=== PATIENT | female | born 1965 | race Caucasian/White ===

== ENCOUNTER 2024-07-07 12:24 | Emergency (ER) | payer MEDICARE, OTHER, SELFPAY ==
[2024-07-07] VITALS (12 sets, daily range): BP systolic 156–172; BP diastolic 93–107; PULSE 60–80; RESP 7–26; TEMP 36.6; O2SAT 92–98; BMI 25.0
--- NOTE | 2024-07-07 14:52 | ED.GENADULT ---
HPI - General Adult General Date Seen: 07/07/24 Chief complaint: Chest Pain Stated complaint: High blood pressure, chest pain Time Seen by Provider: 07/07/24 14:52 History of Present Illness HPI narrative: 58 yo F with a past history of concussion and postconcussive syndrome, ongoing problems with her cervical spine in neck, frequent headaches, but no history of hypertension, stroke, or other vascular disease presenting to the ER today with concerns for elevated blood pressure associated with feeling poorly, retaining fluid, headache. She notes that she gets fairly frequent headaches, typically in the back of her head related to her bad neck pain. She has been doing a lot of physical labor at her property for the past couple of days, in particular on Sunday and Sunday when she was removing gil torn. Since then she has noted worsening of symptoms. She just was not feeling well on Sunday with generalized fatigue, headache, and she also felt bloated with fluid. She says she was up about 8 lb compared to her dry weight on Sunday. Overall since then she has been gradually having weight drop and getting back to normal on Sunday and today on Sunday. She still has a fairly persistent headache located at the top of her head and also in the back of her head. Her usual location of headache is in the back so it is unusual have 1 that extends up to the top. She is not having any blurry vision or double vision. No focal numbness or weakness in her face, arms, or legs. Patient notes that she often has some right-sided parasternal chest pain but this week and had some episodes of left-sided parasternal chest pain 2. She says often times that pain is triggered by heavy movements and that often times gets better when she has manipulation by her chiropractor. The pain is sharp and was intermittent. It was not clearly a substernal pressure related to exertion, more of just an ache with movement. No associated abdominal pain. No nausea. Related Data Home Medications ?Medication ?Instructions ?Recorded ?Confirmed multivit,tx w/iron (hematinic) tab 07/07/24 omega-3 fatty acids-fish oil PO 07/07/24 tumeric 07/07/24 Allergies Allergy/AdvReac Type Severity Reaction Status Date / Time avocado Allergy Mild hives Verified 07/07/24 12:58 mustard Allergy Mild coughing Verified 07/07/24 12:58 and swelling in the face [facility] Social History Smoking Status: Never smoker Do you use any of these nicotine containing products: None How often do you have a drink containing alcohol: monthly or less How many standard drinks containing alcohol do you have on a typical day: 1 or 2 AUDIT-C Alcohol total score: 1 Non-prescribed substance use: denies use Exam Narrative: Exam Narrative: Constitutional: Appears well-developed and well-nourished. Alert. Conversant. Non toxic. HENT: Head: Atraumatic. Nose: Nose normal. Mouth/Throat: Oral mucosa is clear and moist. no trismus. Pharynx normal. Tonsils symmetric. No tonsillar enlargement, erythema, or exudate. Eyes: Conjunctivae normal. EOM normal. Pupils equal, round, and reactive to light. No scleral icterus. Neck: Normal range of motion. The or no stiffness or meningismus Neck supple. No tracheal deviation present. No JVD Cardiovascular: Normal rate, regular rhythm. No gallop. No friction rub. No murmur heard. Symmetric radial artery pulses Pulmonary/Chest: Effort normal. No stridor. No respiratory distress. No wheezes. No rales. No rhonchi . No tenderness. Abdominal: Soft. Bowel sounds normal. No distension. No mass. No tenderness. No rebound. No guarding. Musculoskeletal: RUE: Normal range of motion. No tenderness. No deformity LUE: Normal range of motion. No tenderness. No deformity RLE: Normal range of motion. No edema. No tenderness. No deformity LLE: Normal range of motion. No edema. No tenderness. No deformity Neurological: Mental status normal. Attention normal. Alert and oriented x3. GCS 15. Memory normal. Speech fluent. Cognition normal. Cranial Nerves intact II-XII except I did not formally test gag or visual acuity. EOMI. Palate elevates symmetrically and tongue protrudes in the midline. Strength: 5/5 trapezius on the right and left 5/5 deltoid on the right and left 5/5 biceps on the right and left 5/5 triceps on the right and left 5/5 manufacturing leader on the right and left 5/5 thumb opposition on the right and left 5/5 finger abduction on the right and left 5/5 hip flexors (L3) on the right and left 5/5 quadriceps (L4) on the right and left 5/5 tibialis anterior on the right and left 5/5 EHL (L5) on the right and left 5/5 gastrocnemius (S1) on the right and left 5/5 hamstring on the right and left Sensation intact to light touch in both upper extremities (C4-T1) Sensation intact to light touch in Both lower extremities (L4-S1). coordination normal. Gait normal. Skin: Skin is warm and dry. No rash noted. No pallor. Normal capillary refill. Psychiatric: Normal mood. Normal affect. Const: Vital Signs, click to edit/add: Vital Signs - 24 hr 07/07/24 12:49 07/07/24 15:52 07/07/24 16:00 Temperature 97.9 F Pulse Rate 60 Pulse Rate [Pulse Oximeter] 80 Respiratory Rate 16 26 H 12 Blood Pressure Blood Pressure [Ri ght Upper Arm] 172/103 H Pulse Oximetry 97 95 Oxygen Delivery Me thod Room Air 07/07/24 16:01 07/07/24 16:02 07/07/24 16:32 Temperature Pulse Rate 69 68 Pulse Rate [Pulse Oximeter] Respiratory Rate 14 26 H 19 Blood Pressure 156/93 H Blood Pressure [Ri ght Upper Arm] Pulse Oximetry 92 96 Oxygen Delivery Me thod 07/07/24 16:34 Temperature Pulse Rate 72 Pulse Rate [Pulse Oximeter] Respiratory Rate 7 L Blood Pressure 161/98 H Blood Pressure [Ri ght Upper Arm] Pulse Oximetry 97 Oxygen Delivery Me thod Course Course ED Course: Recheck-reports that her headache is ?much improved, almost gone. She is smiling, sitting up, chatting with her daughter. Discussed results of the workup with the patient and her daughter. They are comfortable with plan for outpatient management. Vital Signs Vital signs: Initial Vital Signs Temperature 97.9 F 07/07/24 12:49 Temperature Source Temporal Artery Scan 07/07/24 12:49 Pulse Rate 80 07/07/24 12:49 Respiratory Rate 16 07/07/24 12:49 Blood Pressure 172/103 H 07/07/24 12:49 Blood Pressure Mean 126 H 07/07/24 12:49 Blood Pressure Position Sitting 07/07/24 12:49 Pulse Oximetry 97 07/07/24 12:49 Oxygen Delivery Method Room Air 07/07/24 12:49 Vital Signs Temperature 97.9 F 07/07/24 12:49 Pulse Rate 80 07/07/24 12:49 Respiratory Rate 16 07/07/24 12:49 Blood Pressure 172/103 H 07/07/24 12:49 Pulse Oximetry 97 07/07/24 12:49 Oxygen Delivery Method Room Air 07/07/24 12:49 Temperature 97.9 F 07/07/24 12:49 Pulse Rate 72 07/07/24 16:34 Respiratory Rate 7 L 07/07/24 16:34 Blood Pressure 161/98 H 07/07/24 16:34 Pulse Oximetry 97 07/07/24 16:34 Oxygen Delivery Method Room Air 07/07/24 12:49 Medications Administered Medications: Discontinued Medications Generic Name Dose Route Start Last Admin Trade Name Sherifq PRN Reason Stop Dose Admin Diphenhydramine HCl 12.5 mg 07/07/24 15:19 07/07/24 15:34 Diphenhydramine 50 Mg/Ml Inj IVP 07/07/24 15:20 12.5 mg ONCE ONE Administration Ketorolac Tromethamine 15 mg 07/07/24 15:19 07/07/24 15:34 Ketorolac 15 Mg/Ml Inj IVP 07/07/24 15:20 15 mg ONCE ONE Administration Metoclopramide HCl 10 mg 07/07/24 15:19 07/07/24 15:35 Metoclopramide Hcl 5 Mg/Ml Inj IVP 07/07/24 15:20 10 mg ONCE ONE Administration Medical Decision Making MDM Narrative Medical decision making narrative: This patient presents for evaluation of elevated blood pressure. She does not have a history of hypertension in the past. Wall she has also had symptoms of headache which is worse than her chronic headache that started on Sunday, also intermittent chest pain on Sunday. Also she reports fluid retention and what sounds like edema that happened on Sunday but is actually getting better. Head CT is normal. She is not having any fever, neck stiffness, meningismus to raise concern for meningitis. Headache was not abrupt in onset to suggest subarachnoid hemorrhage. At this point I do not think she needs lumbar puncture or CT angiogram. No focal neurologic deficits to suggest stroke For chest pain, workup is performed. She is not having intermittent chest pains to suggest angina, more of a sharp ache on both the right and left sternal borders. History is not really suggestive for ACS. EKG nonischemic and troponin is negative. With symptoms ongoing now for 2 days, I think a single troponin is sufficient to rule out ACS. BNP level is normal arguing against CHF or other cardiac strain. Urinalysis is negative for proteinuria or infection. Kidney function is normal on lab work. No evidence for any acute renal failure as a consequence of hypertension. The workup here is negative and the patient does not have any clinical, laboratory, ecg or historical signs of end-organ dysfunction. There is no signs of hypertensive emergency or urgency. Supportive outpatient management is therefore indicated with close follow-up of primary care physician. We discussed her high blood pressure. It is still elevated at about 160/98 after headache is improved. We discussed potentially initiating blood pressure medications today. She would prefer to follow up with her PCP and have it rechecked. Encouraged serial blood pressure monitoring at home to aid primary in decision making regarding hypertension. Lab Data Labs: Lab Results 07/07/24 07/07/24 Range/Units 15:45 16:10 WBC 4.49 L (4.50-11.00) K/uL RBC 4.09 (4.00-5.20) m/uL Hgb 12.8 (12.0-16.0) gm/dL Hct 39.2 (33.0-51.0) % MCV 96 (80-100) fL MCH 31 (26-34) pg MCHC 33 (32-36) gm/dL RDW Coeff of Jose F 11.9 (11.5-15.5) % Plt Count 238 (140-440) K/uL Neut % (Auto) 44.5 (42.0-72.0) % Lymph % (Auto) 44.3 H (20-44) % [place]verse % (Auto) 7.6 (0.0-11.0) % Eos % (Auto) 2.7 (0.0-7.0) % Baso % (Auto) 0.9 (0.0-3.0) % Neut # (Auto) 2.00 (1.7-7.0) K/uL Lymph # (Auto) 2.00 (0.90-2.90) K/uL Converse # (Auto) 0.30 (0.00-0.90) K/UL Eos # (Auto) 0.10 (0.00-0.50) K/uL Baso # (Auto) 0.00 (0.00-0.30) K/uL Abs Immat Gran (auto) 0.00 (0.00-0.30) K/uL Imm/Tot Granulo (auto) 0.0 % Sodium 136 (135-149) mmol/L Potassium 3.8 (3.6-5.1) mmol/L Chloride 102 (96-114) mmol/L Carbon Dioxide 25 (20-32) mmol/L Anion Gap 9 (7-15) mEq/L BUN 11 (7-30) mg/dL Creatinine 0.7 (0.5-1.5) mg/dL Estimated Creat Clear 87.29 Estimated GFR 100 ml/min Glucose 81 (60-115) mg/dL Calcium 9.4 (8.4-10.6) mg/dL Troponin I < 0.01 L (0.01-0.04) ng/mL NT-Pro-B Natriuret Pep 82 pg/mL Urine Color Yellow (Yellow) Urine Appearance Clear (Clear) Urine pH 7.0 (5.0-8.5) Ur Specific [place] 1.010 (1.000-1.030) Urine Protein Negative (Negative) Urine Glucose (UA) Negative (Negative) Urine Ketones 2+ A (Negative) Urine Blood Negative (Negative) Urine Nitrite Negative (Negative) Urine Bilirubin Negative (Negative) Urine Urobilinogen 0.2 (0.2-1.0) Ur Leukocyte Esterase Trace A (Negative) Urine RBC 0-2 (0-2) Urine WBC 0-2 (0-5) Ur Squamous Epith Cells None (None-Few) Urine Bacteria None (None) Imaging Data CT scan - head: Attestation: I have reviewed the pertinent imaging results. Radiologist's impression: IMPRESSION: No acute findings. Incidental findings as above. ECG Data Attestation: I personally reviewed and interpreted this ECG as follows: Interpretation: Normal sinus rhythm Rate: 70 IA: 156 QRS axis: Normal axis ST segment/T wave: No pathologic Q-waves. QTc: Prolonged QT. 460 Discharge Plan Discharge Clinical Impression: High blood pressure, Chest pain, Headache Patient Disposition: Home, Self-Care Condition: Stable Instructions: Chest Pain (DC), Acute Headache (DC), Hypertension (ED) Prescriptions: No Action tumeric omega-3 fatty acids-fish oil [Fish Oil Pearls] PO multivit,tx w/iron (hematinic) Tablet Follow Up/Referrals: Provider,Not a Local [Primary Care Provider] - Stand Alone Forms: MyHealth Info Instructions
[2024-07-07] MEDS: KETOROLAC 15 MG/ML inj IVP (15:34)
[2024-07-07] MEDS: diphenhydrAMINE 50 MG/ML inj 12.5 MG IVP (15:34)
[2024-07-07] MEDS: METOCLOPRAMIDE HCL 5 MG/ML INJ 10 MG IVP (15:35)
[2024-07-07 15:53] LABS: Basophils Percent Auto 0.9 % (0.0-3.0); Eosinophils Percent Auto 2.7 % (0.0-7.0); Hematocrit 39.2 % (33.0-51.0); Hemoglobin* 12.8 gm/dL (12.0-16.0); Lymphocytes Percent Auto 44.3 % (20-44); Mean Corpuscular HGB Conc 33 gm/dL (32-36); Mean Corpuscular Hemoglobin 31 pg (26-34); Mean Corpuscular Volume 96 fL (80-100); Monocytes Percent Auto 7.6 % (0.0-11.0); Neutrophils Percent Auto 44.5 % (42.0-72.0); Platelet Count* 238 K/uL (140-440); RDW Coefficient of Variation % 11.9 % (11.5-15.5); Red Blood Count 4.09 m/uL (4.00-5.20); White Blood Count* 4.49 K/uL (4.50-11.00)
[2024-07-07 15:57] LABS: Slide Review Reflex No
[2024-07-07 16:07] LABS: Chloride* 102 mmol/L (96-114); Potassium* 3.8 mmol/L (3.6-5.1); Sodium* 136 mmol/L (135-149)
[2024-07-07 16:10] LABS: Anion Gap 9 mEq/L (7-15); Blood Urea Nitrogen* 11 mg/dL (7-30); Calcium* 9.4 mg/dL (8.4-10.6); Carbon Dioxide* 25 mmol/L (20-32); Creatinine* 0.7 mg/dL (0.5-1.5); Est. Creatinine Clearance* 87.29; Estimated Glomerular Filt Rate 100 ml/min; Glucose* 81 mg/dL (60-115)
[2024-07-07 16:19] LABS: Appearance Urine Clear (Clear); Bilirubin Urine Negative (Negative); Blood Urine Negative (Negative); Color Urine Yellow (Yellow); Glucose Urine Negative (Negative); Ketones Urine 2+ (Negative); Leukocyte Esterase Urine Trace (Negative); Nitrite Urine Negative (Negative); Protein Urine Negative (Negative); Urobilinogen Urine 0.2 (0.2-1.0)
[2024-07-07 16:25] LABS: RBC Urine 0-2 (0-2); WBC Urine 0-2 (0-5)
[2024-07-07 16:29] LABS: NT Pro B Type NatriureticPept* 82 pg/mL; Troponin I* < 0.01 ng/mL (0.01-0.04)
--- OUTSIDE RECORDS SUMMARY | 2024-07-07 16:56 | XMS_ITS | Clinical Summary ---
Author Organization [facility] Address [address] [place] [address] Care Team Providers Care Bean Weigher Name Role Phone Vick Guardado MD Primary Care Provider Allergies Active Allergy Reactions Criticality Noted Date Comments Avocado Rash 04/16/2012 Mustard Edema 04/16/2012 Medications * This document contains information received from the source organization and may not represent a complete record from that organization. DOCOSAHEXANOIC ACID/EPA (FISH OIL ORAL) Take by mouth once daily. Active multivitamin (MVI) tablet Take 1 tablet by mouth once daily. Active ERGOCALCIFEROL, VITAMIN D2, (VITAMIN D ORAL) Take by mouth once daily. Active fexofenadine (MIHAI) 180 mg tablet Take 180 mg by mouth once daily if needed. 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 Occipital neuralgia 04/23/2012 Bicipital tenosynovitis 04/23/2012 Neck pain 04/16/2012 Shoulder pain 04/16/2012 Disturbance of skin sensation 04/16/2012 Myalgia and myositis, unspecified 04/16/2012 Fall 04/16/2012 Encounters Date Type Department Care Team Description 07/07/2024 Nurse Triage [address] [address] Clinic, No Pcp Or High Blood Pressure from Last 3 Months Social History Tobacco Use Types Packs/Day Years Used Date Smoking Tobacco: Never Smokeless Tobacco: Never Alcohol Use Standard Drinks/Week Comments Not Asked 0 (1 standard drink = 0.6 oz pur e alcohol) Comments No Sex and Gender Information Value Date Recorded Sex Assigned at Not on file 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 Gender Identity Not on file Sexual Orientation Not on file Obstetrics History Last Filed Vital Signs Vital Sign Reading Time Taken Comments Blood Pressure 124/80 08/25/2016 10:09 AM CDT Pulse 80 08/25/2016 10:09 AM CDT Temperature 36.5 C (97.7 F) 08/25/2016 10:09 AM CDT Respiratory Rate 18 08/25/2016 10:09 AM CDT Oxygen Saturation 98% 08/25/2016 10:09 AM CDT Inhaled Oxygen Concentration - - Weight 71 kg (156 lb 9.6 oz) 08/25/2016 10:09 AM CDT Height 172.7 cm (5' 8) 08/25/2016 10:09 AM CDT Body Mass Index 23.81 08/25/2016 10:09 AM CDT Plan of Treatment Health Maintenance Due Date Last Done Comments Tdap 10/23/1975 Depression screening for age 12+ 1976 HIV for age 15-65 10/23/1979 Hepatitis C screening for age 18-79 1982 Tetanus booster 1984 Pap test for age 21-65 1985 Colonoscopy through age 75 2009 Lipids for age 45-75 2009 Mammogram for age 45-75 2009 Pneumococcal series for age 50+ (1 of 1 - PCV) 015 Zoster (shingles) series for age 50+ (1 of 2) 10/23/19 15 BMI (ht and wt on same day) for age 18+ 08/25/2017 0 08/25/2016 COVID-19 vaccine series ( season) 4 Influenza for age 50-64 01/06/2024 Medical Devices Implanted Type Area Radiation Control Technician Device Identifier Shelf Expiration Date Model / Serial / Lot [id number] Canclls 15cc Crushed [[id number]] Implanted:Qty: 1 on 09/14/[address] [facility] Spine Musculoskeletal Transplant 12/05/2013 [id number] / [id number] / Plate Ti Recon 12mm 2 Holes Sm Notched Spacing - [id number] Implanted:Qty: 2 on 09/14/[address] [facility] Right: Spine [employer] [id number]# / / Screw Canclls Bone 12mm - [id number] Implanted:Qty: 2 on 09/14/[address] [facility] Right: Spine DepPress Play 409.012# / / Screw Canclls [id number] Full Thread 409.014 - [id number] Implanted:Qty: 2 on 09/14/[address] [facility] Right: Spine Depuy Foodyn 409.014# / / Insurance TrialScope PB ONLY LILLI DILLARD Advance Directives * Full Code (Latest Code Status on File) Date Activated Date Inactivated Comments 09/14/2011 6:11 AM 09/16/2011 11:58 AM Care Teams Bean Weigher Relationship Specialty Start Date End Date Vick Guardado MD PCP - General 04/16/12
--- OUTSIDE RECORDS SUMMARY | 2024-07-07 16:56 | XMS_ITS | Continuity of Care Document ---
Author Organization [facility] Address [address] [place] [address] Phone Care Team Providers Care Banana Ripening Room Supervisor Name Role Phone Unavailable Unavailable Unavailable Allergies, Adverse Reactions, Alerts Substance Reaction Status Criticality No Known allergies Medications Medication Instructions Dosage Effective Dates (start - stop) Status Comments Flexeril 10 mg Tab take 1 tablet (10MG) by oral route every day as needed 10 MG - Active GABAPENTIN (unknown strength) Not Available - Active MULTIVITAMINS (unknown strength) Not Available - Active FISH OIL (unknown strength) Not Available - Active VITAMIN D3 (unknown strength) Not Available - Active PROBIOTIC (unknown strength) Not Available - Active ADVIL (unknown strength) Not Available - Active Procedures Procedure Date Office/Outpatient Visit,Est, Mod 2012 Office/Outpatient Visit,Est, Mod 2012 Office/Outpatient Visit,Est, Mod 2011 Office/Outpatient Visit,Est, Mod 2011 X-Ray Exam Of Neck Spine2-3 Views Postop Followup Visit X-Ray Exam Of Neck Spine2-3 Views Postop Followup Visit X-Ray Exam Of Neck Spine2-3 Views Neck Spine Fusion (Cerv,Below C2) Cervical Spine Disk Surgery/Decompress M Added Spine Disk Surgery/Decompress Insert Spine Fixation, Posterior 2011 Apply/Remove Bone Fixation Device Autograft, Spine Surg, Morselized Allograft, Spine Surg, Morselized Office/Outpatient Visit,Est, Mod 2011 Office/Outpatient Visit,New, Low 2011 X-Ray Exam Of Neck Spine, 4+ Views Advance Directives Directive Yes / No Effective Date File Name No Information Encounters Encounter Description Practice Location Reason(s) For Visit Diagnoses Date Provider Providers Copied on Encounter [facility], [address], [place], [address], [place] tel:[phone] [facility] No Information 3 No Information Office/Outpa tient Visit,Est, Mod [facility], [address], [place], [address], [place] tel:[phone] [employer] No Information [address] [facility], [address] [place] [address] [address], [place], [place], [id number], [place]. tel:[phone] Referring Provider: Vijay Bradshaw [facility] [address] [place], [address]. tel:[phone] Office/Outpa tient Visit,Est, Mod [facility], [address], [place], [address], [place] tel:[phone] [employer] No Information 3 Mehbod Amir. [facility], [address] [place] [address] [address], [place], [place], [id number], [place]. tel:[phone] Referring Provider: Vijay Bradshaw [facility] [address] [place], [address]. tel:[phone] Office/Outpa tient Visit,Est, Mod [facility], [address], [place], [address], [place] tel:[phone] [employer] No Information 2 Mehbod Amir. [facility], [address] [place] [address] [address], [place], [id number], [place]. tel:[phone] Referring Provider: Vijay Bradshaw, [facility] [address] [place], [address]. tel:[phone] Office/Outpa tient Visit,Est, Mod [facility], [address], [place], [address], [place] tel:[phone] [employer] No Information Mar- 2-201 2 Mehbod Amir. [facility], [address], [place], [place], [id number], [place]. tel:[phone] Referring Provider: Vijay Bradshaw, [facility] [address] [place], [place], [facility]. tel:[phone] [facility], [address], [place], [address], [place] tel:[phone] [email or web address] [place] No Information 2-201 2 Mehbod Amir. [facility], [address], [place], [place], [address], [place]. tel:[phone] [facility], [address], [place], [address], [place] tel:[phone] [email or web address] [place] No Information Nov-3 0-201 2 Mehbod Amir. [facility], [address], [place], [place], [id number], [place]. tel:[phone] [facility], [address], [place], [address], [place] tel:[phone] [email or web address] [place] No Information 6-201 2 Mehbod Amir. [facility], [address], [place], [place], [address], [place]. tel:[phone] Referring Provider: Vijay Bradshaw, [facility] [address] [place], [address]. tel:[phone] [facility], [address], [place], [address], [place] tel:[phone] [facility] CERVICALGIA 2 Angela Russell. [address], [place], [place], [id number], [place]. tel:[phone] [facility], [address], [place], [address], [place] tel:[phone] [facility] [place] No Information 2 Mehbod Kellyr. [facility], [address], [place], [place], [id number], [place]. tel:[phone] Referring Provider: Vijay Bradshaw [facility] [address] [place], [address]. tel:[phone] [facility], [address], [place], [address], [place] tel:[phone] [facility] No Information 2 No Information Referring Provider: Vijay Bradshaw [facility] [address] [place], [address]. tel:[phone] Office/Outpa tient Visit,Est, Mod [facility], [address], [place], [address], [place] tel:[phone] [facility] [place] No Information 2 No Information Referring Provider: Vijay Bradshaw [facility] [address] [place], [address]. tel:[phone] Office/Outpa tient Visit,New, Low [facility], [address], [place], [address], [place] tel:[phone] [facility] [place] Headache 2 No Information Referring Provider: Vijay Bradshaw [facility] [address] [place], [address]. tel:[phone] Family History Family Member Type Diagnosis Age At Onset No Information Payers Payer name Insurance type Covered alliance party ID Authoriza tifelipe(s) Samson Bashir Work Comp [id number] [employer] [id number] Social History Type Description Quantity Date Captured Comments Sex Female Smoking Status No Information Chief Complaint And Reason For Visit No Information Reason For Referral Reason For Referral No Information History Of Present Illness Encounter Date Complaint History Of Prese nt Illness No Information Functional Status Date Functional Assessmen t No Information Instructions Date Instruction Additional Infor mation No Information Assessments Type Assessment Date No Information Patient Care Teams Name Effective Dates (start - stop) Status Members No Information
== END 2024-07-07 17:20 | disposition home or self-care (01) ==
PROVIDERS: Emergency Provider Emergency Medicine
DX: R07.9 Chest pain, unspecified (principal); R51.9 Headache, unspecified; I10 Essential (primary) hypertension
CPT/HCPCS: 36415; 70450; 80048; 81001; 83880; 84484; 85025; 87086; 96374; 96375; 99283; 99284; J1200; J1885; J2765